=== PATIENT | female | born 1945 | race Caucasian/White ===

== ENCOUNTER → 2017-05-11 | Emergency (ER) | payer SELFPAY ==
--- NOTE | 2017-05-11 14:02 | ED ---
Throat Pain/Nasal Congestion - HPI Summary HPI Summary: 71 female presents with complaints of sore throat, productive cough, nasal congestion and headache that has been ongoing for the past 2+ weeks. Patient has been using cough drops however has not taken anything else. Patient states cough is productive with a green/yellow phlegm. Denies hemoptysis. Describes headache as pressure that she thinks is caused by the congestion. She admits to having a subjective fever and chills when symptoms began that lasted a few days however subsided. Denies abdominal pain, nausea, vomiting, chest pain, SOB and difficulty breathing. States she does have chest pain and throat pain when she coughs and she believes it is due to coughing so much. Denies PMHx. No medications. She is here staying with and taking care of a friend diagnosed with cancer. - History of Current Complaint Chief Complaint: EDThroatPain Time Seen by Provider: 05/11/17 12:12 Hx Obtained From: Patient Onset/Duration: Sudden Onset, Lasting Weeks - 2+ Severity: Moderate Associated Signs And Symptoms: Positive: Dysphagia, Sinus Discomfort, Nasal Discharge Cough: Sputum Appears - green/yellow - Epiglottits Risk Factors Epiglottis Risk Factors: Negative - Allergies/Home Medications Allergies/Adverse Reactions: Allergies Allergy/AdvReac Type Severity Reaction Status Date / Time No Known Allergies Allergy Verified 05/12/17 22:49 PMH/Surg Hx/FS Hx/Imm Hx Endocrine/Hematology History: Denies: Hx Diabetes Cardiovascular History: Reports: Hx Hypertension Respiratory History: Denies: Hx Asthma - Surgical History Surgery Procedure, Year, and Place: tonsillectomy as child - Immunization History Immunizations Up to Date: Yes Infectious Disease History: No Infectious Disease History: Denies: Traveled Outside the [place] in Last 30 Days - Family History Known Family History: Positive: None - Social History Alcohol Use: None Substance Use Type: Reports: None Smoking Status (MU): Never Smoked Tobacco Review of Systems Positive: Fever, Chills, Fatigue Eyes: Negative Positive: Sore Throat, Nasal Discharge Cardiovascular: Negative Positive: Cough Gastrointestinal: Negative Musculoskeletal: Negative Skin: Negative Positive: Headache All Other Systems Reviewed And Are Negative: Yes Physical Exam Triage Information Reviewed: Yes Vital Signs On Initial Exam: Initial Vitals Temp Pulse Resp BP Pulse Ox 97.9 F 102 20 151/77 97 05/11/17 12:05 05/11/17 12:05 05/11/17 12:05 05/11/17 12:05 05/11/17 12:05 HR:84 BP:140/70 re-checked and improved. Vital Signs Reviewed: Yes Appearance: Positive: Well-Appearing, No Pain Distress, Well-Nourished Skin: Positive: Warm, Skin Color Reflects Adequate Perfusion, Dry. Negative: Cyanosis @, Pale, Erythema @ Head/Face: Positive: Normal Head/Face Inspection Eyes: Positive: Conjunctiva Clear ENT: Positive: Hearing grossly normal, Pharyngeal erythema, TMs normal, Other - airway patent. post nasal drip noted. Negative: TM bulging, TM dull, Tonsillar swelling, Tonsillar exudate, Trismus, Muffled/hoarse voice Neck: Positive: Supple, Nontender, No Lymphadenopathy Respiratory/Lung Sounds: Positive: Clear to Auscultation, Breath Sounds Present , Other - deep breaths causing patient to cough. Negative: Rales, Rhonchi, Wheezes Cardiovascular: Positive: Normal, RRR, Pulses are Symmetrical in both Upper and Lower Extremities. Negative: Murmur, Rub, Leg Edema Left, Leg Edema Right Bowel Sounds: Positive: Present Musculoskeletal: Positive: Normal, Strength/ROM Intact Neurological: Positive: Normal, Sensory/Motor Intact, Alert, Oriented to Person Place, Time Psychiatric: Positive: Affect/Mood Appropriate - Therese Coma Scale Coma Scale Total: 15 Diagnostics - Vital Signs Vital Signs Temp Pulse Resp BP Pulse Ox 05/11/17 12:24 97.9 F 98 20 150/75 98 05/11/17 12:05 97.9 F 102 20 151/77 97 - Laboratory Lab Results: Lab Results 05/11/17 Range/Units 12:29 Group A Strep Rapid Negative (Negative) Lab Statement: Any lab studies that have been ordered have been reviewed, and results considered in the medical decision making process. EENT Course/Dx - Course Course Of Treatment: due to PE findings, HPI, and length of symptoms will treat patient with antibiotic for URI at this time. no concern for pneumonia or lower resp infection at this time due to PE findings and vitals. x-ray did not seem necessary. will treat with azithromycin. continue symptomatic measures. recommended antihistamine. offered short course steroid however patient refused. no wheezing noted, not hpyoxic. did not appear to be beneficial for duoneb treatment. patient aware of worsening signs and symptoms and when to return. Follow up pcp. fluids, rest. - Differential Diagnoses Differential Diagnoses: Allergic Rhinitis, Otitis Media, Pharyngitis, Sinusitis , URI/Bronchitis - Diagnoses Provider Diagnoses: Upper respiratory infection Discharge - Discharge Plan Condition: Stable Disposition: HOME Prescriptions: Azithromycin TAB* [Zithromax TAB (Z-KWAN) 250 mg #6 tabs] 2 tab PO .TODAY, THEN 1 DAILY #1 kwan Patient Education Materials: Upper Respiratory Infection (ED) Referrals: No Primary Care Phys,NOPCP [Primary Care Provider] - [facility] [Outside] Additional Instructions: Take prescribed medication as directed until entire dose is finished. Continue drinking plenty of fluids, getting plenty of rest. Recommend gargling with salt water and drinking tea with honey. Hot showers, warm compresses over sinuses, saline nasal rinses and vitamins. Try an antihistamine such as claritin, zyrtec or xyzal. If symptoms worsen or do not improve please seek medical attention. Follow up PCP.
[2017-05-11 14:12] VITALS: BP 142/70
== END | disposition home or self-care (01) ==
LOC: ED 11:53
DX: J06.9 Acute upper respiratory infection, unspecified (principal)
CPT/HCPCS: 87651; 99282

== ENCOUNTER 2020-01-14 10:03 | Day surgery (SDC) | payer MEDICAID ==
[~2020-01-14 10:03] MED LIST: Buffered Lidocaine 1% SYRIN* 1 ML/SYRINGE INTRADERM ONE; Lactated Ringers 1000 ML Bag* 1,000 ML IV SCH
[2020-01-14] MEDS ORDERED: Clindamycin 900 MG/D5W BAG(*) 900 MG/50 ML BAG IVPB ONE ×2 (10:11)
[2020-01-14] MEDS ORDERED: Lidocaine 1% w EPI 1:100,000* MDV 20 ML VIAL ONE ×2 (10:26)
[2020-01-14] MEDS ORDERED: Midazolam* 1 MG/ML 2 ML VIAL (2 MG) ONE ×2 (10:26→11:46)
[2020-01-14] MEDS ORDERED: Lidocaine 2% PF * 5 ML VIAL ONE ×2 (12:10)
[2020-01-14] MEDS ORDERED: Bacitracin OINTMENT* 0.5% 0.5 oz TUBE ONE ×2 (12:25)
[2020-01-14] MEDS ORDERED: fentaNYL* 50 MCG/ML 2 ML VIAL (100 MCG VIAL) IV PRN (12:35)
[2020-01-14] MEDS ORDERED: oxyCODONE TAB* 5 MG TAB PO PRN (12:35)
[2020-01-14] MEDS ORDERED: Naloxone* 0.4 MG/ML 1 ML VIAL IV PRN (12:35)
[2020-01-14] MEDS ORDERED: Acetaminophen TAB* 325 MG PO PRN (12:35)
--- NOTE | 2020-01-14 12:50 | OP ---
Operative Report - Blank - Operative Report Date of Operation: 01/14/20 Note: Pre-OP Diagnoses: Breast Ca Post-op Diagnosis: same Procedure: Insertion of powerport, needle in dressing change at Left breast Surgeon: Rayshawn Asst: none Anethesia: local, MAC EBL: minimal IVF: minimal Specimen: none Drains: none 8Fr single lumen power port via R SCV
--- NOTE | 2020-01-14 13:35 | OP ---
CC: Dr. Holly Ventura; [facility] * DATE OF OPERATION: 01/14/20 - [facility] DATE OF : 43 SURGEON: Rigoberto Tabares MD. RAND BUTTER: None. ANESTHESIA: Local MAC anesthesia. PRE-OP DIAGNOSIS: Breast cancer. POST-OP DIAGNOSIS: Breast cancer. OPERATIVE PROCEDURE: Insertion of PowerPort needle in and dressing change at left breast. ESTIMATED BLOOD LOSS: Minimal. FLUIDS: Minimal crystalloid fluid given. INSTRUMENT: An 8-Moroccan PowerPort inserted via the right subclavian vein. DESCRIPTION OF PROCEDURE: The patient was identified in the preoperative area. She was marked and consent was signed. She was brought to the operating room and placed on the operating table in supine position. Preoperative antibiotics were given. Sequential devices were placed in bilateral lower extremities. Sedation was given. The patient's right upper chest and neck were prepped and draped in a standard surgical fashion. A time-out was performed. The right subclavian vein was accessed and a wire inserted into the superior vena cava under fluoroscopy. Then, a pocket was made inferior to this and a wire was brought into this incision. The vein was dilated under fluoroscopy and an 8-Moroccan tubing placed appropriately and cut to size. It was attached to the pre-flushed PowerPort along with the hub and sutured into the pocket with 0 Prolene sutures at the medial aspect and lateral aspect. The wound was irrigated and reapproximated in the standard fashion. The port was accessed and good blood aspiration was noted. This was then flushed with saline and followed by heparinized saline. Once the dressing was in place, a Gracia needle was then inserted and again flushed with heparinized saline after aspirating the air and dressing was applied. Attention was then turned to the left breast. Dressing was removed. Wound appeared somewhat smaller than our initial visit with good pink granulation tissue. No erythema, no drainage. Antibiotic ointment and gauze was applied. The patient tolerated the procedure well and was transferred to the PACU in stable condition. [id number] #: [id number] MTDD
[2020-01-14 13:54] VITALS: BP 154/86
== END 2020-01-14 13:45 | disposition home or self-care (01) ==
LOC: OR 10:03
PROVIDERS: ATTEND Surgery
DX: C50.912 Malignant neoplasm of unspecified site of left female breast (principal); Z88.0 Allergy status to penicillin; Z85.828 Personal history of other malignant neoplasm of skin; I10 Essential (primary) hypertension
CPT/HCPCS: 71045; A9270-GY; C1788; J1642; J2250